=== PATIENT | male | born 1960 | race Hispanic/Latino ===

== ENCOUNTER 2018-10-29 11:16 | Inpatient (IN) | payer MEDICARE, OTHER | END 2018-11-01 18:15 | LOC: EDH 11:16 → EDHIP 14:40 → 2AH 23:36 | DX: A41.9 Sepsis, unspecified organism (principal); R53.2 Functional quadriplegia; J18.9 Pneumonia, unspecified organism; J96.01 Acute respiratory failure with hypoxia; N39.0 Urinary tract infection, site not specified; R47.01 Aphasia; Z93.0 Tracheostomy status; G40.909 Epilepsy, unspecified, not intractable, without status epilepticus; R65.20 Severe sepsis without septic shock ==

== ENCOUNTER → 2023-10-16 | Outpatient (CLI) | payer MEDICARE ==
[~2023-10-16] MED LIST: ACET160E13 PO; ALBUMIN (HUMAN) 25% 200 ML IV SCH; ENAL-87 PO; PHEN100O5 PO; PHEN20EL5 GT; [UNRECOGNIZED DRUG - CODE] PO
[2023-10-16 12:41] LABS: APPEARANCE BODY FLUID CLEAR (CLEAR); COLOR,BODY FLUID YELLOW (LT YELLOW); SPECIMENTYPE,BODY FLUID ASCITES; TOTAL VOLUME,BODY FLUID 6000 mL
[2023-10-16 13:08] LABS: BODY FLUID RBC 160 /cu. mm.; BODY FLUID WBC 419 /cu. mm.
[2023-10-16 13:22] LABS: ALBUMIN,BODY FLUID 0.8 g/dL; TOTAL PROTEIN,BODY FLUID 2.7 g/dL
[2023-10-16 13:40] LABS: BF LYMPHOCYTE 62 %; BF MESOTHELIAL 20 %; BF MONOCYTE 9 %; BF TOTAL CELLS COUNTED 100
== END | disposition home or self-care (01) ==
LOC: RAH 08:58
PROVIDERS: ATTEND Internal Medicine Gastroenterology
DX: R18.8 Other ascites (principal); K74.69 Other cirrhosis of liver; I10 Essential (primary) hypertension; G40.909 Epilepsy, unspecified, not intractable, without status epilepticus; I61.9 Nontraumatic intracerebral hemorrhage, unspecified; Z79.899 Other long term (current) drug therapy; Z79.01 Long term (current) use of anticoagulants
CPT/HCPCS: 49083; 84157; 89051; 87071; 87205; 82042; 88305; 88112; P9046; C1729

== ENCOUNTER → 2023-11-06 | Outpatient (CLI) | payer MEDICARE ==
[~2023-11-06] MED LIST changes: -ALBUMIN (HUMAN) 25% 200 ML IV SCH
[2023-11-06 10:51] LABS: BASOPHILS # (AUTO) 0.06 K/uL (0.00-0.20); BASOPHILS % (AUTO) 0.8 % (0.0-5.0); EOSINOPHILS # (AUTO) 0.23 K/uL (0.00-0.70); HEMATOCRIT 29.6 % (42-54); IMMATURE GRANULOCYTE ABSOLUTE 0.02 K/uL (0-1); LYMPHOCYTES % (AUTO) 12.5 % (21.0-51.0); MEAN CORPUSCULAR HEMOGLOBIN 30.2 pg (27.0-33.0); MEAN CORPUSCULAR HGB CONC 32.8 g/dL (32.0-36.0); MEAN CORPUSCULAR VOLUME 92.2 fL (79-99); MONOCYTES # (AUTO) 0.8 K/uL (0.1-1.0); NEUTROPHILS # (AUTO) 5.7 K/uL (1.8-7.7); NEUTROPHILS % (AUTO) 73.4 % (40.0-77.0); PLATELET COUNT (AUTO) 102 K/uL (130-400); RED BLOOD CELL COUNT(AUTO) 3.21 MIL/uL (4.50-6.20); RED CELL DISTRIBUTION WIDTH 14.4 % (11.0-15.5); WHITE BLOOD COUNT (AUTO) 7.8 K/uL (4.8-10.8)
[2023-11-06 10:57] LABS: INR <= 0.93 (0.85-1.15); PROTHROMBIN TIME 10.9 SEC (9.6-11.6)
[2023-11-06 10:58] LABS: PARTIAL THROMBOPLASTIN TIME 25.6 SEC (26.3-35.5)
[2023-11-06] MEDS: ALBUMIN (HUMAN) 25% 200 ML IV SCH (11:00)
[2023-11-06 11:02] LABS: ALBUMIN 1.9 g/dL (3.5-5.0); BILIRUBIN,TOTAL 0.5 mg/dL (0.2-1.0); CREATININE 1.2 mg/dL (0.5-1.3); POTASSIUM 4.8 mmol/L (3.5-5.1); TOTAL PROTEIN, SERUM 7.4 g/dL (6.0-8.3)
[2023-11-06 13:01] LABS: ALBUMIN,BODY FLUID 0.7 g/dL; TOTAL PROTEIN,BODY FLUID 2.7 g/dL
[2023-11-06 13:55] LABS: APPEARANCE BODY FLUID CLEAR (CLEAR); BODY FLUID RBC 60 /cu. mm.; BODY FLUID WBC 300 /cu. mm.; COLOR,BODY FLUID YELLOW (LT YELLOW); SPECIMENTYPE,BODY FLUID ASCITES; TOTAL VOLUME,BODY FLUID 6800 mL
[2023-11-06 14:33] LABS: BF LYMPHOCYTE 40 %; BF MESOTHELIAL 22 %; BF MONOCYTE 5 %; BF TOTAL CELLS COUNTED 100
== END | disposition home or self-care (01) ==
LOC: RAH 09:04
PROVIDERS: ATTEND Internal Medicine Gastroenterology
DX: R18.8 Other ascites (principal); K74.69 Other cirrhosis of liver; I10 Essential (primary) hypertension; Z88.0 Allergy status to penicillin; Z98.890 Other specified postprocedural states; Z86.73 Personal history of transient ischemic attack (TIA), and cerebral infarction without residual deficits; Z93.1 Gastrostomy status; Z79.01 Long term (current) use of anticoagulants; Z79.899 Other long term (current) drug therapy
CPT/HCPCS: 49083; 84157; 80053; 85025; 89051; 85610; 85730; 87071; 87076; 87205; 82042; 36415; P9046; C1729; 96365

== ENCOUNTER → 2023-11-27 | Outpatient (CLI) | payer MEDICARE ==
[~2023-11-27] MED LIST changes: +ALBUMIN (HUMAN) 25% 200 ML IV ONE; +PHEN20EL20 GT; -PHEN20EL5 GT
[2023-11-27 15:11] LABS: ALBUMIN,BODY FLUID 0.9 g/dL; TOTAL PROTEIN,BODY FLUID 2.9 g/dL
[2023-11-27 15:28] LABS: BODY FLUID RBC 145 /cu. mm.; BODY FLUID WBC 223 /cu. mm.
[2023-11-27 15:55] LABS: APPEARANCE BODY FLUID CLEAR (CLEAR); COLOR,BODY FLUID YELLOW (LT YELLOW); SPECIMENTYPE,BODY FLUID ASCITES; TOTAL VOLUME,BODY FLUID 6400 mL
[2023-11-27 17:26] LABS: BF LYMPHOCYTE 9 %; BF MACROPHAGE 64; BF MESOTHELIAL 1 %; BF MONOCYTE 1 %; BF OTHER CELLS 2; BF TOTAL CELLS COUNTED 100
== END | disposition home or self-care (01) ==
LOC: RAH 10:38
PROVIDERS: ATTEND Internal Medicine Gastroenterology
DX: R18.8 Other ascites (principal)
CPT/HCPCS: 49083; 84157; 89051; 87071; 87076; 87205; 82042; P9046; C1729

== ENCOUNTER → 2023-12-18 | Outpatient (CLI) | payer MEDICARE ==
[2023-12-18 10:06] LABS: BASOPHILS # (AUTO) 0.05 K/uL (0.00-0.20); BASOPHILS % (AUTO) 0.6 % (0.0-5.0); EOSINOPHILS # (AUTO) 0.21 K/uL (0.00-0.70); EOSINOPHILS % (AUTO) 2.7 % (0.0-8.0); HEMATOCRIT 24.9 % (42-54); IMMATURE GRANULOCYTE ABSOLUTE 0.03 K/uL (0-1); LYMPHOCYTES # (AUTO) 0.7 K/uL (1.0-4.8); LYMPHOCYTES % (AUTO) 9.5 % (21.0-51.0); MEAN CORPUSCULAR HEMOGLOBIN 31.4 pg (27.0-33.0); MEAN CORPUSCULAR HGB CONC 34.5 g/dL (32.0-36.0); MEAN CORPUSCULAR VOLUME 90.9 fL (79-99); MONOCYTES # (AUTO) 0.7 K/uL (0.1-1.0); MONOCYTES % (AUTO) 9.2 % (3.0-13.0); NEUTROPHILS % (AUTO) 77.6 % (40.0-77.0); PLATELET COUNT (AUTO) 129 K/uL (130-400); RED BLOOD CELL COUNT(AUTO) 2.74 MIL/uL (4.50-6.20); RED CELL DISTRIBUTION WIDTH 14.5 % (11.0-15.5); WHITE BLOOD COUNT (AUTO) 7.7 K/uL (4.8-10.8)
[2023-12-18 10:16] LABS: BILIRUBIN,TOTAL 0.7 mg/dL (0.2-1.0); INR <= 0.93 (0.85-1.15); POTASSIUM 4.8 mmol/L (3.5-5.1); TOTAL PROTEIN, SERUM 7.3 g/dL (6.0-8.3)
[2023-12-18 10:17] LABS: PARTIAL THROMBOPLASTIN TIME 26.9 SEC (26.3-35.5)
[2023-12-18 13:05] LABS: TOTAL PROTEIN,BODY FLUID 2.7 g/dL
[2023-12-18 15:00] LABS: BODY FLUID RBC 0 /cu. mm.; BODY FLUID WBC 624 /cu. mm.
[2023-12-18 15:52] LABS: APPEARANCE BODY FLUID CLEAR (CLEAR); COLOR,BODY FLUID YELLOW (LT YELLOW); SPECIMENTYPE,BODY FLUID ASCITES; TOTAL VOLUME,BODY FLUID 6000 mL
[2023-12-18 18:52] LABS: BF LYMPHOCYTE 11 %; BF MACROPHAGE 70; BF TOTAL CELLS COUNTED 100
== END | disposition home or self-care (01) ==
LOC: RAH 08:59
PROVIDERS: ATTEND Internal Medicine Gastroenterology
DX: R18.8 Other ascites (principal); K74.69 Other cirrhosis of liver; I10 Essential (primary) hypertension; Z79.01 Long term (current) use of anticoagulants; Z79.899 Other long term (current) drug therapy; Z88.0 Allergy status to penicillin; Z88.8 Allergy status to other drugs, medicaments and biological substances; Z86.73 Personal history of transient ischemic attack (TIA), and cerebral infarction without residual deficits
CPT/HCPCS: 49083; 84157; 80053; 85025; 89051; 85610; 85730; 87071; 87076; 87205; 82042; 36415; 88305; 88112; P9046; C1729

== ENCOUNTER → 2024-01-08 | Outpatient (CLI) | payer MEDICARE ==
[~2024-01-08] MED LIST changes: -ALBUMIN (HUMAN) 25% 200 ML IV ONE
[2024-01-08 14:38] LABS: ALBUMIN,BODY FLUID 0.9 g/dL; TOTAL PROTEIN,BODY FLUID 2.6 g/dL
[2024-01-08 14:44] LABS: BODY FLUID RBC 33 /cu. mm.; BODY FLUID WBC 350 /cu. mm.
[2024-01-08 14:48] LABS: APPEARANCE BODY FLUID SLIGHTLY CLOUDY (CLEAR); COLOR,BODY FLUID YELLOW (LT YELLOW); SPECIMENTYPE,BODY FLUID ASCITES; TOTAL VOLUME,BODY FLUID 5000 mL
[2024-01-08 15:28] LABS: BF LYMPHOCYTE 16 %; BF MACROPHAGE 58; BF MONOCYTE 2 %; BF OTHER CELLS 3; BF TOTAL CELLS COUNTED 100
== END | disposition home or self-care (01) ==
LOC: RAH 09:43
PROVIDERS: ATTEND Internal Medicine Gastroenterology
DX: R18.8 Other ascites (principal); K74.69 Other cirrhosis of liver; I10 Essential (primary) hypertension; G40.909 Epilepsy, unspecified, not intractable, without status epilepticus; Z79.899 Other long term (current) drug therapy; Z86.73 Personal history of transient ischemic attack (TIA), and cerebral infarction without residual deficits; Z88.0 Allergy status to penicillin
CPT/HCPCS: 49083; 84157; 89051; 87071; 87076; 87205; 82042; C1729

== ENCOUNTER → 2024-01-29 | Outpatient (CLI) | payer MEDICARE ==
[~2024-01-29] MED LIST changes: +ALBUMIN (HUMAN) 25% 200 ML IV ONE
[2024-01-29 10:58] LABS: BASOPHILS # (AUTO) 0.04 K/uL (0.00-0.20); BASOPHILS % (AUTO) 0.6 % (0.0-5.0); EOSINOPHILS # (AUTO) 0.38 K/uL (0.00-0.70); EOSINOPHILS % (AUTO) 5.3 % (0.0-8.0); HEMATOCRIT 28.3 % (42-54); IMMATURE GRANULOCYTE ABSOLUTE 0.02 K/uL (0-1); LYMPHOCYTES # (AUTO) 0.7 K/uL (1.0-4.8); LYMPHOCYTES % (AUTO) 9.8 % (21.0-51.0); MEAN CORPUSCULAR HEMOGLOBIN 31.9 pg (27.0-33.0); MEAN CORPUSCULAR HGB CONC 33.2 g/dL (32.0-36.0); MEAN CORPUSCULAR VOLUME 95.9 fL (79-99); MONOCYTES # (AUTO) 0.6 K/uL (0.1-1.0); MONOCYTES % (AUTO) 8.3 % (3.0-13.0); NEUTROPHILS # (AUTO) 5.4 K/uL (1.8-7.7); NEUTROPHILS % (AUTO) 75.7 % (40.0-77.0); PLATELET COUNT (AUTO) 112 K/uL (130-400); RED BLOOD CELL COUNT(AUTO) 2.95 MIL/uL (4.50-6.20); RED CELL DISTRIBUTION WIDTH 14.2 % (11.0-15.5); WHITE BLOOD COUNT (AUTO) 7.1 K/uL (4.8-10.8)
[2024-01-29 11:25] LABS: ALBUMIN 1.9 g/dL (3.5-5.0); BILIRUBIN,TOTAL 0.5 mg/dL (0.2-1.0); CREATININE 1.3 mg/dL (0.5-1.3); POTASSIUM 4.1 mmol/L (3.5-5.1); TOTAL PROTEIN, SERUM 7.3 g/dL (6.0-8.3)
[2024-01-29 12:05] LABS: INR 0.98 (0.85-1.15); PARTIAL THROMBOPLASTIN TIME 25.3 SEC (26.3-35.5); PROTHROMBIN TIME 10.4 SEC (9.6-11.6)
[2024-01-29 16:11] LABS: ALBUMIN,BODY FLUID 0.7 g/dL; TOTAL PROTEIN,BODY FLUID 2.4 g/dL
[2024-01-29 16:16] LABS: BODY FLUID RBC 0 /cu. mm.; BODY FLUID WBC 227 /cu. mm.
[2024-01-29 16:23] LABS: APPEARANCE BODY FLUID SLIGHTLY CLOUDY (CLEAR); COLOR,BODY FLUID YELLOW (LT YELLOW); SPECIMENTYPE,BODY FLUID ASCITES; TOTAL VOLUME,BODY FLUID 6000 mL
[2024-01-29 17:47] LABS: BF LYMPHOCYTE 22 %; BF MACROPHAGE 59; BF OTHER CELLS 2; BF TOTAL CELLS COUNTED 100
== END | disposition home or self-care (01) ==
LOC: RAH 09:06
PROVIDERS: ATTEND Internal Medicine Gastroenterology
DX: R18.8 Other ascites (principal); K74.69 Other cirrhosis of liver; G40.909 Epilepsy, unspecified, not intractable, without status epilepticus; I10 Essential (primary) hypertension; Z98.890 Other specified postprocedural states; Z79.01 Long term (current) use of anticoagulants; Z86.73 Personal history of transient ischemic attack (TIA), and cerebral infarction without residual deficits; Z88.0 Allergy status to penicillin; Z88.8 Allergy status to other drugs, medicaments and biological substances; Z79.899 Other long term (current) drug therapy
CPT/HCPCS: 49083; 84157; 80053; 85025; 89051; 85610; 85730; 87071; 87076; 87205; 82042; 36415; 88305; 88112; P9046; C1729; 96365

== ENCOUNTER → 2024-02-11 | Outpatient (CLI) | payer MEDICARE ==
[2024-02-11 15:22] LABS: BODY FLUID RBC 118 /cu. mm.; BODY FLUID WBC 245 /cu. mm.
[2024-02-11 15:26] LABS: APPEARANCE BODY FLUID CLEAR (CLEAR); COLOR,BODY FLUID YELLOW (LT YELLOW); SPECIMENTYPE,BODY FLUID ASCITES; TOTAL VOLUME,BODY FLUID 4600 mL
[2024-02-11 16:52] LABS: BF EOSINOPHIL 26 %; BF LYMPHOCYTE 5 %; BF MACROPHAGE 9; BF MONOCYTE 3 %; BF OTHER CELLS 2; BF TOTAL CELLS COUNTED 100
== END | disposition home or self-care (01) ==
LOC: RAH 10:00
PROVIDERS: ATTEND Internal Medicine Gastroenterology
DX: R18.8 Other ascites (principal); K74.60 Unspecified cirrhosis of liver; G40.909 Epilepsy, unspecified, not intractable, without status epilepticus; Z88.1 Allergy status to other antibiotic agents; Z86.73 Personal history of transient ischemic attack (TIA), and cerebral infarction without residual deficits; Z79.899 Other long term (current) drug therapy
CPT/HCPCS: 49083; 89051; P9046; C1729

== ENCOUNTER → 2024-03-03 | Outpatient (CLI) | payer MEDICARE ==
[~2024-03-03] MED LIST changes: +ALBUMIN (HUMAN) 25% 100 ML IV ONE; -ALBUMIN (HUMAN) 25% 200 ML IV ONE
[2024-03-03 08:43] LABS: INR 1.01 (0.85-1.15); PROTHROMBIN TIME 10.9 SEC (9.6-11.6)
[2024-03-03 08:44] LABS: PARTIAL THROMBOPLASTIN TIME 27.2 SEC (26.3-35.5)
[2024-03-03 12:47] LABS: SPECIMENTYPE,BODY FLUID ASCITES
[2024-03-03 12:48] LABS: TOTAL VOLUME,BODY FLUID 4800 mL
[2024-03-03 13:51] LABS: BODY FLUID RBC 0 /cu. mm.; BODY FLUID WBC 298 /cu. mm.
[2024-03-03 13:53] LABS: BF LYMPHOCYTE 44 %; BF MACROPHAGE 23; BF MONOCYTE 21 %; BF TOTAL CELLS COUNTED 100
[2024-03-03 13:54] LABS: APPEARANCE BODY FLUID SLIGHTLY CLOUDY (CLEAR); COLOR,BODY FLUID YELLOW (LT YELLOW)
== END | disposition home or self-care (01) ==
LOC: RAH 07:58
PROVIDERS: ATTEND Internal Medicine Gastroenterology
DX: R18.8 Other ascites (principal); K74.60 Unspecified cirrhosis of liver; I10 Essential (primary) hypertension; G40.909 Epilepsy, unspecified, not intractable, without status epilepticus; Z86.73 Personal history of transient ischemic attack (TIA), and cerebral infarction without residual deficits; Z93.1 Gastrostomy status; Z79.899 Other long term (current) drug therapy
CPT/HCPCS: 49083; 89051; 85610; 85730; 36415; P9046; C1729; 96365

== ENCOUNTER → 2024-03-20 | Outpatient (CLI) | payer MEDICARE ==
[~2024-03-20] MED LIST changes: -ALBUMIN (HUMAN) 25% 100 ML IV ONE
[2024-03-20 14:11] LABS: SPECIMENTYPE,BODY FLUID ASCITES; TOTAL VOLUME,BODY FLUID 4700 mL
[2024-03-20 14:12] LABS: APPEARANCE BODY FLUID CLEAR (CLEAR); COLOR,BODY FLUID YELLOW (LT YELLOW)
[2024-03-20 14:36] LABS: BODY FLUID RBC 0 /cu. mm.; BODY FLUID WBC 183 /cu. mm.
[2024-03-20 15:42] LABS: BF BASOPHIL 1 %; BF LYMPHOCYTE 29 %; BF MACROPHAGE 43; BF MESOTHELIAL 2 %; BF OTHER CELLS 1; BF TOTAL CELLS COUNTED 100
== END | disposition home or self-care (01) ==
LOC: RAH 08:00
PROVIDERS: ATTEND Internal Medicine Gastroenterology
DX: R18.8 Other ascites (principal); K74.60 Unspecified cirrhosis of liver; I10 Essential (primary) hypertension; G40.909 Epilepsy, unspecified, not intractable, without status epilepticus; Z86.73 Personal history of transient ischemic attack (TIA), and cerebral infarction without residual deficits; Z93.1 Gastrostomy status; Z88.8 Allergy status to other drugs, medicaments and biological substances; Z79.899 Other long term (current) drug therapy
CPT/HCPCS: 49083; 89051; C1729

== ENCOUNTER → 2024-04-14 | Outpatient (CLI) | payer MEDICARE ==
[2024-04-14 14:29] LABS: BODY FLUID RBC 0 /cu. mm.; BODY FLUID WBC 183 /cu. mm.
[2024-04-14 14:31] LABS: TOTAL VOLUME,BODY FLUID 4900 mL
[2024-04-14 14:32] LABS: APPEARANCE BODY FLUID CLOUDY (CLEAR); COLOR,BODY FLUID YELLOW (LT YELLOW); SPECIMENTYPE,BODY FLUID ASCITES
[2024-04-14 18:06] LABS: BF EOSINOPHIL 3 %; BF LYMPHOCYTE 67 %; BF MONOCYTE 3 %; BF TOTAL CELLS COUNTED 100
== END | disposition home or self-care (01) ==
LOC: RAH 08:42
PROVIDERS: ATTEND Internal Medicine Gastroenterology
DX: R18.8 Other ascites (principal); K74.60 Unspecified cirrhosis of liver; I10 Essential (primary) hypertension; G40.909 Epilepsy, unspecified, not intractable, without status epilepticus; Z86.73 Personal history of transient ischemic attack (TIA), and cerebral infarction without residual deficits; Z93.1 Gastrostomy status; Z88.1 Allergy status to other antibiotic agents; Z79.899 Other long term (current) drug therapy
CPT/HCPCS: 49083; 89051; C1729

== ENCOUNTER 2024-06-30 16:48 | Observation (INO) | payer MEDICARE ==
[~2024-06-30] VITALS: Ht 172.7 cm; Wt 72.6 kg
[~2024-06-30 16:48] MED LIST changes: +LACT-441 PO; -[UNRECOGNIZED DRUG - CODE] PO
[2024-06-30 17:42] LABS: BASOPHILS # (AUTO) 0.02 K/uL (0.00-0.20); BASOPHILS % (AUTO) 0.1 % (0.0-5.0); EOSINOPHILS # (AUTO) 0.04 K/uL (0.00-0.70); EOSINOPHILS % (AUTO) 0.2 % (0.0-8.0); IMMATURE GRANULOCYTE ABSOLUTE 0.22 K/uL (0-1); LYMPHOCYTES # (AUTO) 0.3 K/uL (1.0-4.8); LYMPHOCYTES % (AUTO) 1.9 % (21.0-51.0); MEAN CORPUSCULAR HEMOGLOBIN 29.2 pg (27.0-33.0); MEAN CORPUSCULAR VOLUME 94.2 fL (79-99); MONOCYTES # (AUTO) 1.1 K/uL (0.1-1.0); MONOCYTES % (AUTO) 6.6 % (3.0-13.0); NEUTROPHILS % (AUTO) 89.9 % (40.0-77.0); PLATELET COUNT (AUTO) 93 K/uL (130-400); RED BLOOD CELL COUNT(AUTO) 1.37 MIL/uL (4.50-6.20); RED CELL DISTRIBUTION WIDTH 15.3 % (11.0-15.5); WHITE BLOOD COUNT (AUTO) 16.7 K/uL (4.8-10.8)
[2024-06-30 17:52] LABS: HEMATOCRIT 12.9 % (42-54); INR 1.32 (0.85-1.15)
[2024-06-30] MEDS ORDERED: levoFLOXacin 750 MG/D5W 150 ML 150 ML IV ONE (18:00)
[2024-06-30] MEDS ORDERED: PANTOPrazole 40 MG/VIAL IVP ONE (18:00)
[2024-06-30 18:04] LABS: BILIRUBIN,URINE MODERATE mg/dL (NEGATIVE); GLUCOSE, URINE (UA) 100 mg/dL (NEGATIVE); KETONES,URINE 15 mg/dL (NEGATIVE); LEUKOCYTE ESTERASE ,URINE MODERATE Leu/uL (NEGATIVE); NITRATE,URINE POSITIVE (NEGATIVE); OCCULT BLOOD,URINE LARGE (NEGATIVE); PROTEIN,URINE >=300 mg/dL (NEGATIVE)
[2024-06-30 18:05] LABS: ADD UA MICROSCOPIC YES; APPEARANCE,URINE CLOUDY (CLEAR); COLOR,URINE RED (YELLOW)
--- NOTE | 2024-06-30 18:14 | HMCIMG ---
CHEST 1VW HISTORY: Shortness of breath COMPARISON: 05/13/2024 FINDINGS: A frontal projection of the chest was obtained. Bilateral pulmonary infiltrates are seen in the left pleural effusion. The study is limited due to patient's large body habitus. The heart is borderline enlarged. Degenerative changes are seen. No evidence of aortic calcification is seen. IMPRESSION: 1. Bilateral pulmonary infiltrates with left pleural effusion.
[2024-06-30 18:17] LABS: TOTAL PROTEIN, SERUM 6.4 g/dL (6.0-8.3)
[2024-06-30 18:18] LABS: BACTERIA,URINE MANY /HPF (None Seen); WBC,URINE TNTC /HPF (0-1)
[2024-06-30 18:19] LABS: RBC,URINE TNTC /HPF (0-1)
[2024-06-30 18:24] LABS: CREATININE 13.1 mg/dL (0.5-1.3); POTASSIUM 6.6 mmol/L (3.5-5.1)
--- NOTE | 2024-06-30 18:54 | NUR ---
PER RODRÍGUEZ EDWARDS AND DR CARRANZA, WE ARE TO ONLY ADMIT FOR A PARACENTESIS FOR PALLIATIVE CARE. PT IS ON HOSPICE. THIS IS PER FAMILY REQUEST. REFER TO NOTES MADE BY HELP DESK SUPPORT SPECIALIST. HOLD OFF ON ANY TREATMENTS AT THIS TIME OTHER THAN THAN COMFORT CARE
--- NOTE | 2024-06-30 18:59 | NUR ---
SHOULD FAMILY CHANGE THEIR MIND, THERE IS A UNIT OF BLOOD AVAILABLE
--- NOTE | 2024-06-30 19:13 | NUR ---
REPORT ENDORSED TO [facility]
--- NOTE | 2024-06-30 19:47 | NUR ---
SPOKEN TO PATIENT'S RELATIVES AT BEDSIDE (SISTER IN LAW) DIMITRI JAIMES FAMILY WELL ASWARE ABOUT THE PATIENT'S SITUATION, SHE TOLD ME THEY ACTUALLY SIGNED A DNR FORM LAST MONTH (PT'S PREV ADMISSION) FAMILY JUST WANTED TO HAVE THE PARACENTESIS FOR PALLIATION/COMFORT AND NOTHIN THEY WERE WELL AWARE THAT PATIENT'S VITALS AND LABS ARE OFF THE RANGE SECURED DNR FORM, SIGNED BY PT'S SISTER IN LAW DIMITRI PT HAS A CARER/HELPER AT BEDSIDE
[2024-06-30] MEDS ORDERED: miDODRine HCL 5 MG TABLET PO SCH (20:30)
--- NOTE | 2024-06-30 21:16 | HP ---
[facility] HISTORY AND PHYSICAL Date of Service: Jun 30, 2024 Time of Service: 21:16 Attending/supervising physicians Dr. Garnica and Dr. Daysi Benjamin HISTORY OF PRESENT ILLNESS: Mr. Burris is a 64-year-old male with a history nonverbal, traumatic brain injury in 1994, seizure disorder, status post tracheostomy, and PEG tube status, psoriasis, hypertension, liver cirrhosis on serial paracentesis as outpatient who presented to [facility] emergency department by EMS after being brought in by family due to increased abdominal distention. As per family patient is on hospice but is getting paracentesis every 3-4 weeks. Patient is due for a para centesis in July 06. As per family patient is at baseline. ED provider that the patient is hospice, the family only wanted the thoracentesis to be done. ED provider reports that IR is closed for the day and is requested patient be admitted for thoracentesis done by IR in the morning. I went to assess patient at bedside in ED 10. The patient was unresponsive/vegetative state (at baseline per family) and hypotensive systolic blood pressure 80s. The family member at bedside reports that the patient's brother Marvin is the decision maker. The family member called Marvin so he could informed me of what he would like done in the hospital for the patient since the patient had a lot of critical lab results. I informed him of multiple critically abnormal lab results including a hemoglobin of 4.0 and hypotension. Marvin, the patient's brother reported that he would like everything done except for dialysis, intubation, compressions for his brother. Jag reports that if needed the patient could go to ICU for pressors. He reports that he would like the thoracentesis done in the morning, and that he will take the patient home in the morning back on hospice. I informed them of labs, diagnostics, and plan of care. They verbalized understanding and are in agreement with the plan. Plan and assessment are listed below. REVIEW OF SYSTEMS Unable to obtain ROS from patient due to patient is unresponsive/vegetative state. PAST MEDICAL HISTORY: As listed above PAST SURGICAL HISTORY: Trach, peg tube PAST SOCIAL HISTORY: No alcohol, tobacco, or illicit drug use. Lives with family. FAMILY HISTORY: Noncontributory Coded Allergies: Penicillins (Verified Allergy, Unknown, 03/07/17) PHYSICAL EXAM GENERAL APPEARANCE: The patient is chronically ill, vegetative state. NEUROLOGICAL: Vegetative state. HEENT: Dry oral mucosa. Palate has purpura. Pupils are sluggish. NECK: Supple. No JVD. No thyromegaly. No submental, submandibular, pre-/pos tauricular, occipital or supraclavicular lymphadenopathy. CHEST: Normal chest expansion. No Telemetry. LUNGS: Diminished. Absence of any rales, rhonchi or any wheezing. CARDIOVASCULAR: BP 80s systolic. Regular. S1 and S2 normal. No appreciable rubs, murmurs or gallops. ABDOMEN: Cachectic. Soft, nontender, and rounded. There is no rebound, voluntary guarding, or rigidity. : Vail in place. EXTREMITIES: Non-edematous and not cyanotic. No clubbing. Good capillary refill. SKIN: Decubitus ulcers to buttocks. Vital Sign (Last 24 Hours) 06/30/24 19:03 Pulse 75 Resp 17 B/P (MAP) 91/31 Pulse Ox 100 O2 Delivery Room Air* O2 Flow Rate 0 FiO2 21 LABS: Laboratory: Test 06/30/24 18:06 06/30/24 17:33 06/30/24 17:16 Range/Units Lactic Acid Level 5.5 H 0.8-2.5 mmol/L Troponin I High Sensitivity 33 4-75 ng/L White Blood Count 16.7 H 4.8-10.8 K/uL Red Blood Count 1.37 L 4.50-6.20 MIL/uL Hemoglobin 4.0 *L 14.0-18.0 g/dL Hematocrit 12.9 *L 42-54 % Mean Corpuscular Volume 94.2 79-99 fL Mean Corpuscular Hemoglobin 29.2 27.0-33.0 pg Mean Corpuscular Hemoglobin Concent 31.0 L 32.0-36.0 g/dL Red Cell Distribution Width 15.3 11.0-15.5 % Platelet Count 93 L 130-400 K/uL Mean Platelet Volume 13.8 H 7.5-10.5 fL Immature Granulocyte % (Auto) 1.3 H 0-1 % Neutrophils (%) (Auto) 89.9 H 40.0-77.0 % Lymphocytes (%) (Auto) 1.9 L 21.0-51.0 % Monocytes (%) (Auto) 6.6 3.0-13.0 % Eosinophils (%) (Auto) 0.2 0.0-8.0 % Basophils (%) (Auto) 0.1 0.0-5.0 % Neutrophils # (Auto) 15.0 H 1.8-7.7 K/uL Lymphocytes # (Auto) 0.3 L 1.0-4.8 K/uL Monocytes # (Auto) 1.1 H 0.1-1.0 K/uL Eosinophils # (Auto) 0.04 0.00-0.70 K/uL Basophils # (Auto) 0.02 0.00-0.20 K/uL Absolute Immature Granulocyte (auto 0.22 0-1 K/uL Nucleated Red Blood Cells 0.0 0.0-0.19 % White Cell Morphology Comment See comments Red Blood Cell Morphology See comments Prothrombin Time 14.0 H 9.6-11.6 SEC Prothromb Time International Ratio 1.32 H 0.85-1.15 Activated Partial Thromboplast Time 37.0 H 26.3-35.5 SEC Sodium Level 125 L 136-145 mmol/L Potassium Level 6.6 *H 3.5-5.1 mmol/L Chloride Level 87 *L 101-111 mmol/L Carbon Dioxide Level 16 L 21-32 mmol/L Blood Urea Nitrogen 216 *H 7-18 mg/dL Creatinine 13.1 *H 0.5-1.3 mg/dL Glomerular Filtration Rate Calc 4 >90 mL/min Random Glucose 330 H 70-105 mg/dL Total Calcium 7.0 L 8.5-10.1 mg/dL Total Bilirubin 1.0 0.2-1.0 mg/dL Aspartate Amino Transf (AST/SGOT) 47 H 10-37 U/L Alanine Aminotransferase (ALT/SGPT) 26 12-78 U/L Alkaline Phosphatase 999 *H 50-136 U/L B-Type Natriuretic Peptide 235 H 0-100 pg/mL Total Protein 6.4 6.0-8.3 g/dL Albumin 2.0 L 3.5-5.0 g/dL Urine Color RED H YELLOW Urine Appearance CLOUDY H CLEAR Urine pH 5.0 5.0-8.0 Urine Specific Picher 1.025 1.001-1.031 Urine Protein >=300 H NEGATIVE mg/dL Urine Glucose (UA) 100 H NEGATIVE mg/dL Urine Ketones 15 H NEGATIVE mg/dL Urine Occult Blood LARGE H NEGATIVE Urine Nitrate POSITIVE H NEGATIVE Urine Bilirubin MODERATE H NEGATIVE mg/dL Urine Urobilinogen 1.0 0.2-1.0 mg/dL Urine Leukocyte Esterase MODERATE H NEGATIVE Joann/uL Urine RBC TNTC H 0-1 /HPF Urine WBC TNTC H 0-1 /HPF Urine Bacteria MANY None Seen /HPF Current Medications Medications (Trade) Dose Ordered Sig/Yi Route PRN Reason Start Time Stop Time Status Last Admin Dose Admin Levofloxacin/ Dextrose 100 ml @ 100 mls/hr Q48H IV 06/30/24 21:00 07/10/24 20:59 Midodrine (PROAMatine 5 MG TABLET) 10 mg TID PO 06/30/24 20:30 06/30/24 20:15 DC Midodrine (PROAMatine 5 MG TABLET) 10 mg TID PO 06/30/24 21:00 07/30/24 20:59 DIAGNOSTICS / RADIOLOGY: [ ] ASSESSMENT: Severe anemia, POA requiring blood transfusion Hypotension in need of pressors, POA Acute renal failure, POA Hyperkalemia Poor vascular access Acute complicated cystitis, POA Electrolyte derangement (hyperkalemia, Acute hypoxemic respiratory failure. Quadriplegic Decompensated liver cirrhosis with ascites and hepatic encephalopathy, POA gingival hyperplasia with gum bleeding Decubitus ulcer, POA DNR DNI status Hospice at home Chronic problem list: nonverbal, traumatic brain injury in 1994, seizure disorder, status post tracheostomy, and PEG tube status, psoriasis, hypertension, liver cirrhosis on serial paracentesis as outpatient PLAN: Transferred to ICU with continuous telemetry monitoring and pulse oximetry monitoring. Transfused 2 units of PRBCs. Monitor hemoglobin and hematocrit. Discussed with case with critical care. Hyperkalemia protocol. Gentle IV hydration. Start Levophed, titrate to keep map above 65. Monitor I&Os. Start Protonix 40 mg IV b.i.d.. Start Levaquin 500 mg IV per pharmacy protocol. Vail catheter care by nursing. Reconcile home medications once available. Albuterol and Atrovent nebulizer treatments scheduled. Aspiration precautions, turn q.2 hours. Wound care per nursing. Patient's brother requesting DNR/DNI, declined dialysis. Patient's brother and family at bedside request treat patient tonight and we will take patient home as hospice tomorrow after the requested paracentesis by IR. Order placed for paracentesis by IR in the morning. Case management consult for discharge planning to return home on hospice. ADVANCED CARE PLANNING 1. Which of the following were discussed? Hospice Care - Yes Therapeutic options - Yes Advance Directives - Yes Other discussions - 2. Discussed with who? Family and brother 3. Voluntary nature of this service was explained to the patient? Yes 4. Amount of time spent - _ critical care time over 90 minutes 5. Reviewed by Physician? (if this service was performed by NPP) Yes / No Patient seen and examined by me. Agree with note by LINE WELDER SEE ADDITIONAL ORDERS PER CHART DISCUSSED WITH NURSING STAFF PRINCESS BELTRÁNP Jun 30, 2024 21:16
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
--- NOTE | 2024-06-30 22:08 | NUR ---
SECURED CONSENT FOR BLOOD TRANFUSION SIGNED BY WILLY SALAZAR, PATIENT'S NOK TERRENCE RICK (LARRY) CONSENTED HER OVER THE PHONE TO PROCEED WITH THE TRANSFUSION
[2024-06-30] MEDS: miDODRine HCL 5 MG TABLET PO SCH (22:35)
[2024-06-30] MEDS: levoFLOXacin 500 MG/D5W 100 ML 100 ML IV SCH (22:35)
[2024-06-30] MEDS: 0.9% NACL 500ML IV.SOLN 500 ML IV ONE (22:36)
[2024-07-01] VITALS (7 sets, daily range): BP systolic 108; BP diastolic 47; PULSE 62–70; RESP 17–22; TEMP 97.8; O2SAT 96–99
--- NOTE | 2024-07-01 | NUR ---
UNABLE START MEDS ON TIME PATIENT DOES NOT HAVE ANY IV ACCESS FROM THE DAY SHIFT ATTEMPTED ++++ TIMES- NEGATIVE, ABLE TO INSERT PERIPHERAL LINES VIA DAX
[2024-07-01] MEDS: ALBUTEROL 0.083% 2.5 MG/3 ML INH IH SCH (00:15)
[2024-07-01] MEDS: IpraTROPium 0.5 MG/2.5 ML INH IH SCH (00:15)
[2024-07-01] MEDS: NOREPINEPHRIN 4MG/NS 250ML 250 ML IV SCH (00:19)
[2024-07-01] MEDS: NOREPINEPHRIN 4MG/NS 250ML 250 ML IV PRN (00:29)
[2024-07-01] MEDS ORDERED: acetaMINOPHEN 650 MG SUPPOSITORY RC PRN (00:30)
[2024-07-01] MEDS ORDERED: ondanSETRON 4MG INJ IVP PRN (00:30)
[2024-07-01] MEDS ORDERED: doCUSate SODIUM 100 MG CAP PO PRN (00:30)
[2024-07-01] MEDS ORDERED: acetaMINOPHEN 325 MG TAB PO PRN (00:30)
[2024-07-01] MEDS ORDERED: LACTULOSE 20 GM/30 ML UDCUP PO PRN ×2 (00:30→10:30)
[2024-07-01] MEDS ORDERED: TEMAZepam 15 MG CAPSULE PO PRN (00:30)
[2024-07-01 00:33] LABS: RAPID GROUP A STREP negative (NEGATIVE)
[2024-07-01 00:43] LABS: INFLUENZA TYPE A Negative For Type A (NEGATIVE); INFLUENZA TYPE B Negative For Type B (NEGATIVE)
[2024-07-01 00:46] LABS: SARS-CoV-2, RNA, NAAT NEGATIVE SARS CoV-2 (NEGATIVE)
[2024-07-01] MEDS: ALBUTEROL 0.083% 2.5 MG/3 ML INH IH ONE (00:51)
--- NOTE | 2024-07-01 02:00 | NUR ---
BACON CATHETER CHANGED DONE
--- NOTE | 2024-07-01 02:00 | NUR ---
1 UNIT PRBC DONE AT 2.00- NIL TRANSFUSION REACTION NOTED TRANSFUSION FORM RETURNED TO THE LAB
[2024-07-01] MEDS: SODIUM BICARB 50MEQ 50ML VIAL IV ONE (02:35)
[2024-07-01] MEDS: PANTOPrazole 40 MG/VIAL IVP SCH (02:35)
[2024-07-01] MEDS: DEXTROSE 50%-WATER 50 ML DISP.SYRIN IV ONE (02:35)
[2024-07-01] MEDS: CALCIUM GLUC 1GM/10ML VIAL IV ONE (02:35)
[2024-07-01] MEDS: kayEXALate 15GM/60ML PO ONE (02:35)
[2024-07-01] MEDS: 0.9%NACL 1000ML 1,000 ML IV SCH (02:36)
--- NOTE | 2024-07-01 02:58 | NUR ---
RIGHT AC G18 IV CANNULA OUT- REINSERTED IV TO LEFT HAND G20 STARTED 2ND UNIT OF PRBC ON RIGHT HAND IV ACCESS, CLEANED, CHANGED AND REPOSITIONED PATIENT SACRAL PRESSURE SORE NOTED GRADE 1 TO 2 3X4CM, + MOISTURE LESIONS SORROUNDING THE WOUND-- CLEANED AND DRESSED
--- NOTE | 2024-07-01 03:03 | NUR ---
HYPERKALEMIC TREATMENT GIVEN FOR K 6.6
[2024-07-01] MEDS: INSULIN humuLIN R 100 UNIT/ML 3ML IV ONE (03:10)
--- NOTE | 2024-07-01 04:40 | NUR ---
INSTRUCTED CARER TO BRING PT'S LIST OF HOME MEDS
--- NOTE | 2024-07-01 05:55 | EKG ---
[facility] Test Date: 2024-06-30 Test Time: 17:41:13 Pat Name: ZAIN RICK Department: EDHIP Room: ED 10 Gender: M Circular Head Saw Operator: [id number] : 1960 Requested By: RODRÍGUEZ GRANDE Order Number: [id number] Reading MD: Juliana Strong Measurements Intervals Dante Rate: 78 P: 3 IA: 215 QRS: 13 QRSD: 137 T: 10 QT: 469 QTc: 533 Interpretive Statements Sinus rhythm Borderline prolonged IA interval Nonspecific intraventricular conduction delay Compared to ECG 06/10/2024 09:41:17 Intraventricular conduction delay now present Electronically Signed On 07-01-2024 17:25:26 ADJUNCT BUSINESS INSTRUCTOR by Juliana Strong Please click the below link to view image of tracing.
--- NOTE | 2024-07-01 06:25 | NUR ---
2ND UNIT OF PRBC DONE- NIL TRANSFUSION REACTION NOTED BLOOD TRANSFUSION FORM RETURNED TO LAB
--- NOTE | 2024-07-01 07:10 | NUR ---
ASSUMED CARE AT THIS TIME
[2024-07-01] MEDS: INSULIN humuLIN R 100 UNIT/ML 3ML SQ SCH (07:30)
[2024-07-01 07:38] LABS: HEMOGLOBIN A1C 5.8 % (4.0-6.0)
--- NOTE | 2024-07-01 09:30 | NUR ---
PAGED HOSPITALIST FOR LAB RESULTS AND PEG TUBE FEEDING ORDERS. AWARE WILL PUT IN ORDERS.
--- NOTE | 2024-07-01 09:45 | NUR ---
DR ZHAO AT BEDSIDE
--- NOTE | 2024-07-01 09:50 | NUR ---
PARACENTESIS CONSENT SIGNED
[2024-07-01 09:57] LABS: BASOPHILS # (AUTO) 0.02 K/uL (0.00-0.20); BASOPHILS % (AUTO) 0.1 % (0.0-5.0); EOSINOPHILS # (AUTO) 0.01 K/uL (0.00-0.70); EOSINOPHILS % (AUTO) 0.1 % (0.0-8.0); HEMATOCRIT 21.1 % (42-54); IMMATURE GRANULOCYTE ABSOLUTE 0.21 K/uL (0-1); LYMPHOCYTES # (AUTO) 0.3 K/uL (1.0-4.8); LYMPHOCYTES % (AUTO) 1.4 % (21.0-51.0); MEAN CORPUSCULAR HEMOGLOBIN 30.8 pg (27.0-33.0); MEAN CORPUSCULAR HGB CONC 34.1 g/dL (32.0-36.0); MEAN CORPUSCULAR VOLUME 90.2 fL (79-99); MONOCYTES # (AUTO) 1.4 K/uL (0.1-1.0); NEUTROPHILS # (AUTO) 15.7 K/uL (1.8-7.7); NEUTROPHILS % (AUTO) 89.2 % (40.0-77.0); PLATELET COUNT (AUTO) 82 K/uL (130-400); RED BLOOD CELL COUNT(AUTO) 2.34 MIL/uL (4.50-6.20); RED CELL DISTRIBUTION WIDTH 14.4 % (11.0-15.5); WHITE BLOOD COUNT (AUTO) 17.6 K/uL (4.8-10.8)
--- NOTE | 2024-07-01 10:03 | NUR ---
BED ASSIGNMENT: BED 216 JUST NOW ASSIGNED BY WILY CERNACLINICAL INFORMATICS PHYSICIAN
--- NOTE | 2024-07-01 10:13 | NUR ---
PT NO LONGER ASSIGNED TO BED 216
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
[2024-07-01] MEDS: LACTULOSE 20 GM/30 ML UDCUP PO SCH ×2 (10:22→11:00)
--- NOTE | 2024-07-01 10:36 | NUR ---
IR AT BEDSIDE FOR PARACENTESIS
[2024-07-01] MEDS: ALBUMIN HUMAN 25% 200 ML IV ONE (10:53)
--- NOTE | 2024-07-01 11:16 | NUR ---
RE: PARACENTESIS BY IR AT BEDSIDE PROCEDURE PERFORMED BY DR Tejinder PINA. TOTAL REMOVED 9 LITERS OF CLOUDY YELLOW FLUID. SPECIMEN COLLECTED AND SENT TO LAB. ALBUMIN 25% 50 GRAMS IV STARTED DURING PROCEDURE.. END OF PROCEDURE AT 1115. PATIENT RECOVERED IN ED ROOM 10. REPORT GIVEN TO Michel ALEXANDER LVN.
--- NOTE | 2024-07-01 11:52 | NUR ---
Nutrition consult per TF recs Reviewed labs, notes, and medication. Recent admin 05/17/24 wt of 81 kg, Pt hospice, abd distended, Pt w/ paracentsis 3-4 per week, npo, elevated ast, elevated Cr 13.1, elevated bun 216, hyperkalemia 6.6, hyponatremia 125, elevated troponin, lactic acid 6.1 per chart review. PEG tube in place per nursing. No hx in chart. IBW %106, [id number] kcals, 56-70 gm pro per ABW of 70 kg. 19.8 lbs wt loss 10% wt change within 1 month sig. Pt in day patient. TF recs to meet Pt's needs. Recommendations -Provide Nepro 1.8 @ 40 ml/hr x 22 hrs + 200 Q4H Provides: 1782 kcals, 80 gm pro, 1519 ml per day -If bolus provide: 4 1/2 cans of Nepro 1.8 (times: 0900,1400, 1900, 0000) 30 ml before and after each feed -Monitor BM -If no BM >3 days consider stool softener -Monitor electrolytes -Replenish electrolytes per protocol -Monitor wts -Reweigh as able -Order Vit D labs -Provide b-complex QD if medically feasible -Recommend Pt to follow up with PCP -Monitor TF tolerance + need for TF adjustment -Monitor goals of care RD to follow + available for consult per protocol Addendum: 07/01/24 at [address] Amended: Links added.
--- NOTE | 2024-07-01 12:20 | NUR ---
DCP: HOME WITH [facility] HARIS recd call from ANA Patty Jonathan [phone]. Family does not want pt to b admitted. Family requesting pt discharge home with [facility]. Family also requesting nolasco be removed. Haris provided ANA with # for ER so she can speak directly to nurse regarding removal of nolasco. Haris spoke to Emi nurse, who states pt is admitted since yesterday and she needs order to dc. HARIS spoke to Kate URENA and informed of family request. HARIS updated Chino with Lyssa of above
[2024-07-01] MEDS: RIFAXIMIN 550 MG TABLET PO SCH (12:29)
--- NOTE | 2024-07-01 13:19 | HMCIMG ---
US ABDOMINAL PARACENTESIS IR REASON: ascites TECHNIQUE: Paracentesis was performed with ultrasound guidance. The puncture site was selected in the Right lower quadrant and overlying skin prepped and draped in a sterile fashion. 1% Xylocaine infiltration was performed. Catheter was placed in the fluid using trocar technique. 9 L were removed. Fluid sample was submitted for laboratory evaluation. The patient showed no evidence of complication during the procedure. IMPRESSION: 1. Ultrasound-guided paracentesis.
--- NOTE | 2024-07-01 15:02 | DS ---
Discharge Summary Hospital Course Summary: Mr. Burris is a 64-year-old male with a history nonverbal, traumatic brain injury in 1994, seizure disorder, status post tracheostomy, and PEG tube status, psoriasis, hypertension, liver cirrhosis on serial paracentesis as outpatient who presented to [facility] emergency department by EMS after being brought in by family due to increased abdominal distention. As per family patient is on hospice but is getting paracentesis every 3-4 weeks. Patient is due for a paracentesis in July 06. As per family patient is at baseline. ED provider said that the patient is hospice, the family only wanted the thoracentesis to be done. The patient was unresponsive/vegetative state (at baseline per family) and hypotensive systolic blood pressure 80s. The family member at bedside reports that the patient's brother Marvin is the decision maker. The family member called Marvin so he could informed me of what he would like done in the hospital for the patient since the patient had a lot of critical lab results. Marvin, the patient's brother reported that he would like everything done except for dialysis, intubation, compressions for his brother. Jag reports that if needed the patient could go to ICU for pressors. He reports that he would like the thoracentesis done , and that he will take the patient home back on hospice. His Hgb was 40, gave him two units of RBC. Recessing Machine Operator recommended Jevity 1.8 petra feed. Paracentesis was done by the IR at bedside this morning and 9 L of fluid was removed and was sent for lab evaluation. As per patient's family request, he will be discharged to [facility]. Manager Of Clinical(s): Radiology - Dr. Power Procedure(s): REASON: sob ORDERING PHYSICIAN: RODRÍGUEZ GRANDE NETWORK PLANNER PROCEDURE: CXR1VW - CHEST 1VW CHEST 1VW HISTORY: Shortness of breath COMPARISON: 05/13/2024 FINDINGS: A frontal projection of the chest was obtained. Bilateral pulmonary infiltrates are seen in the left pleural effusion. The study is limited due to patient's large body habitus. The heart is borderline enlarged. Degenerative changes are seen. No evidence of aortic calcification is seen. IMPRESSION: 1. Bilateral pulmonary infiltrates with left pleural effusion. REASON: ascites ORDERING PHYSICIAN: PRINCESS BELTRÁN NETWORK PLANNER PROCEDURE: PARA ABD - US ABDOMINAL PARACENTESIS IR US ABDOMINAL PARACENTESIS IR REASON: ascites TECHNIQUE: Paracentesis was performed with ultrasound guidance. The puncture site was selected in the Right lower quadrant and overlying skin prepped and draped in a sterile fashion. 1% Xylocaine infiltration was performed. Catheter was placed in the fluid using trocar technique. 9 L were removed. Fluid sample was submitted for laboratory evaluation. The patient showed no evidence of complication during the procedure. IMPRESSION: 1. Ultrasound-guided paracentesis. Assessment/Plan: ASSESSMENT: Severe anemia, POA requiring blood transfusion Hypotension in need of pressors, POA Acute renal failure, POA Hyperkalemia Poor vascular access Acute complicated cystitis, POA Electrolyte derangement (hyperkalemia, Acute hypoxemic respiratory failure. Quadriplegic Decompensated liver cirrhosis with ascites and hepatic encephalopathy, POA gingival hyperplasia with gum bleeding Decubitus ulcer, POA DNR DNI status Hospice at home Chronic problem list: nonverbal, traumatic brain injury in 1994, seizure disorder, status post tracheostomy, and PEG tube status, psoriasis, hypertension, liver cirrhosis on serial paracentesis as outpatient Discharge Instructions: ADMISSION DATE : 06/30/24 DISCHARGE DATE : 07/01/24 DISPOSITION : Hospice CONDITION : permanent vegetative state Manager Of Clinical(s) : Radiology - Dr. Power FOLLOW UP APPOINTMENTS : f/u with PCP in 1-2 days PROCEDURES : Paracentesis IMAGING (s) : report attached to summary MICROBIOLOGY : paracentesis fluid sent for labs ACTIVITY : none HOME MEDICATIONS : continue . Home Medications: Reported Medications Lactulose (Lactulose) 10 Gram/15 Ml Solution, 10 GM PO QODAY, ML 05/17/24 Acetaminophen (Mapap) 160 Mg/5 Ml Liquid, 15 ML PO AD PRN for FEVER/PAIN, DIS.SYR 03/07/17 Enalapril Maleate (Enalapril Maleate) 5 Mg Tablet, 5 MG PO DAILY, TAB 03/07/17 Phenytoin (Phenytoin) 125 Mg/5 Ml Oral.susp, 4 ML PO TID, ML 03/07/17 Phenobarbital (Phenobarbital) 20 Mg/5 Ml (4 Mg/Ml) Elixir, 3 ML GT TID, ML 03/07/17 Time spent arranging discharge: 1-30 minutes ATTESTATION BY PHYSICIAN I have seen and examined the patient. I reviewed the documentation, medical decision making, and treatment plan as noted by the resident provider above. I agree with the findings and plan of care. Herrera Mohan IV, MD, NIHITHA MD Jul 01, 2024 15:02
[2024-07-01 15:12] LABS: BODY FLUID RBC 400 /cu. mm.; BODY FLUID WBC 474 /cu. mm.
--- NOTE | 2024-07-01 16:44 | NUR ---
Patient being discharged from ER.
[2024-07-01 16:46] LABS: BF LYMPHOCYTE 10 %; BF MACROPHAGE 21; BF MESOTHELIAL 5 %; BF MONOCYTE 8 %; BF TOTAL CELLS COUNTED 100
[2024-07-01 16:47] LABS: APPEARANCE BODY FLUID SLIGHTLY CLOUDY (CLEAR); COLOR,BODY FLUID YELLOW (LT YELLOW); SPECIMENTYPE,BODY FLUID ASCITES
[2024-07-01 16:48] LABS: TOTAL VOLUME,BODY FLUID 9000 mL
--- NOTE | 2024-07-01 17:22 | NUR ---
EMS PAPERWORK FAXED AND DISPATCHED CALLED FOR TRANSFER BACK HOME
--- NOTE | 2024-07-01 19:41 | NUR ---
[facility] HERE TO TAKE PT BACK TO [facility]. PT FAMILY AT BEDSIDE.
--- NOTE | 2024-07-03 09:36 | NUR ---
POSITIVE URINE CULTURE REPORTED BY LAB. ADVISED LAB STAFF PT WAS ADMITTED INPATIENT. LAB STAFF STATES WILL ADVISE INPATIENT INFECTION CONTROL DEPT.
== END 2024-07-01 19:45 | disposition home or self-care (01) ==
LOC: EDH 16:48 → UNDOADMOB 19:07 → EDHIP 19:07 → 3AH 19:57 → EDHIP 22:10
PROVIDERS: ADMIT Internal Medicine; ATTEND Internal Medicine
DX: A41.9 Sepsis, unspecified organism (principal); Z20.822 Contact with and (suspected) exposure to COVID-19; R65.20 Severe sepsis without septic shock; N17.9 Acute kidney failure, unspecified; D63.1 Anemia in chronic kidney disease; R18.8 Other ascites; I95.9 Hypotension, unspecified; E87.5 Hyperkalemia; N30.00 Acute cystitis without hematuria; J96.01 Acute respiratory failure with hypoxia; I12.9 Hypertensive chronic kidney disease with stage 1 through stage 4 chronic kidney disease, or unspecified chronic kidney disease; E11.22 Type 2 diabetes mellitus with diabetic chronic kidney disease; N18.9 Chronic kidney disease, unspecified; D72.829 Elevated white blood cell count, unspecified; E11.10 Type 2 diabetes mellitus with ketoacidosis without coma; E87.1 Hypo-osmolality and hyponatremia; L89.329 Pressure ulcer of left buttock, unspecified stage; L89.319 Pressure ulcer of right buttock, unspecified stage; K76.82 Hepatic encephalopathy; K74.60 Unspecified cirrhosis of liver; K06.1 Gingival enlargement; K06.8 Other specified disorders of gingiva and edentulous alveolar ridge; G40.909 Epilepsy, unspecified, not intractable, without status epilepticus; J90 Pleural effusion, not elsewhere classified; Z66 Do not resuscitate; Z87.820 Personal history of traumatic brain injury
CPT/HCPCS: 96365; 36430 ×2; 99285; 84484; 80053; 83880; 85025 ×2; 85610; 85730; 86850; 86900; 86901; 86923 ×2; 87040 ×2; 87086 ×2; 87186; 83605 ×2; 81001; 36415 ×2; 71045; 93005; 96368; 96367; 96375; 96366; 96376; 83036; 84443; 82140; 89051; 87071; 87880; 87205; 87804 ×2; 82948; 87635; 49083; 94640; J1815 ×2; G0378 ×17; P9016 ×2; J7040; J1956; J3490 ×6; J7070; J0612; J2470 ×2; P9046; C1729; 94664